=== PATIENT | female | born 1950 | race Two or more races ===

== ENCOUNTER 2020-11-13 16:11 | Inpatient (IN) | payer MEDICARE, OTHER ==
[~2020-11-13] VITALS: Ht 157.5 cm; Wt 71.2 kg
--- NOTE | 2020-11-13 16:30 | NUR ---
PT ARRIVED WITH ABDOMINAL PAIN, UNABLE TO TOLERATE FOOD AND WEAKNESS FOR MONTHS WAS HOSPITALIZED IN [place] FOR 3 WEEKS. ALERT & ORIENTED X4.
[2020-11-13 16:52] LABS: BASOPHILS # (AUTO) 0.1 K/uL (0.0-0.2); BASOPHILS % (AUTO) 1.2 % (0.0-2.0); EOSINOPHILS % (AUTO) 0.2 % (0.0-6.0); HEMATOCRIT 33 % (33-45); HEMOGLOBIN 10.7 g/dL (11.5-14.8); LYMPHOCYTES # (AUTO) 2.7 K/uL (0.8-4.8); LYMPHOCYTES % (AUTO) 33.5 % (20.0-44.0); MEAN CORPUSCULAR HGB CONC 33 g/dl (31.0-36.0); MEAN CORPUSCULAR VOLUME 90 fL (82-100); MONOCYTES # (AUTO) 0.8 K/uL (0.1-1.30); MONOCYTES % (AUTO) 10.4 % (2.0-12.0); NEUTROPHILS # (AUTO) 4.4 K/uL (1.8-8.9); NEUTROPHILS % (AUTO) 54.7 % (43.0-81.0); PLATELET COUNT (AUTO) 280 K/uL (150-450); RED BLOOD CELL COUNT(AUTO) 3.66 MIL/uL (4.0-5.2); WHITE BLOOD COUNT (AUTO) 8.1 K/uL (4.3-11.0)
[2020-11-13] MEDS ORDERED: ONDANSETRON HCL/PF - ER 4 MG/2 ML VIAL IV ONE (17:00)
[2020-11-13] MEDS ORDERED: IV NS 0.9% 500 ML BAG IV ONE (17:00)
[2020-11-13] MEDS ORDERED: ONDANSETRON HCL/PF 4 MG/2 ML VIAL ONE (17:01)
[2020-11-13 17:05] LABS: ALBUMIN 2.2 g/dL (3.4-5.0); BILIRUBIN,DIRECT 0.3 mg/dL (0.0-0.2); BILIRUBIN,TOTAL 0.6 mg/dL (0.2-1.0); CALCIUM, SERUM 8.1 mg/dL (8.5-10.1); CREATININE 0.6 mg/dL (0.6-1.3); TOTAL PROTEIN, SERUM 7.2 g/dL (6.4-8.2)
[2020-11-13] MEDS ORDERED: CYAN-6 IM (17:05)
[2020-11-13] MEDS ORDERED: FAMO-131 PO (17:05)
[2020-11-13] MEDS ORDERED: BUPR-54 PO (17:05)
[2020-11-13] MEDS ORDERED: ESOM40CA PO (17:05)
[2020-11-13] MEDS ORDERED: LOSA25TA27 PO (17:05)
[2020-11-13 17:07] LABS: POTASSIUM 2.6 mmol/L (3.5-5.1)
[2020-11-13] MEDS ORDERED: DICY20TA11 PO (17:08)
[2020-11-13] MEDS: POTASSIUM CL. PREMIX PERIPHER. 50 ML IV SCH ×2 (17:30→19:00)
[2020-11-13] MEDS ORDERED: POTASSIUM CHLORIDE 20 MEQ TAB.PRT.SR PO ONE ×2 (17:30→17:51)
--- NOTE | 2020-11-13 17:40 | NUR ---
COVID SWABS DONE AND SENT TO THE LAB
[2020-11-13] MEDS ORDERED: Magnesium 1GM/D5W 100ML PREMIX 400 ML IV ONE (17:50)
[2020-11-13] MEDS ORDERED: POTASSIUM CL. PREMIX PERIPHER. 200 ML ONE (17:50)
[2020-11-13] MEDS ORDERED: IOHEXOL-300 100 ML VIAL IV ONE (18:03)
[2020-11-13] MEDS ORDERED: IV NS 0.9% 250 ML IV ONE (18:03)
[2020-11-13] MEDS: Magnesium 1GM/D5W 100ML PREMIX 100 ML IV SCH ×4 (18:14→21:00)
--- NOTE | 2020-11-13 18:18 | NUR ---
THE PATIENT TAKEN TO CT
--- NOTE | 2020-11-13 18:21 | NUR ---
CALLED NURSING SUP FOR M/S BED.
--- NOTE | 2020-11-13 18:30 | NUR ---
THE PATIENT IS BACK FROM CT
--- NOTE | 2020-11-13 19:15 | NUR ---
3 BAGS OF MAGNESIUM AND 3 MAGS OF POTASSIUM ARE ENDORSED TO SUPERVISOR DRAPERY HANGING FOR ADMINISTRATION.
[2020-11-13 19:21] LABS: BILIRUBIN,URINE Negative (NEGATIVE); COLOR,URINE YELLOW (YELLOW); LEUKOCYTE ESTERASE ,URINE Negative (NEGATIVE); NITRITE, URINE Negative (NEGATIVE); PROTEIN,URINE Negative (NEGATIVE); UGLUCOSE Negative (NEGATIVE); UROBILINOGEN,URINE 0.2 EU/dL (0.2)
[2020-11-13 19:30] LABS: BACTERIA,URINE Few /HPF (None Seen); SQUAMOUS EPITHELIAL CELL,UR 0-2 /HPF (None Seen)
[2020-11-13] MEDS ORDERED: PIPERACILLIN /TAZOBACTAM 3.375 G in IV D5W 50 ML IV ONE (20:00)
[2020-11-13] MEDS ORDERED: PIPERACILLIN /TAZOBACTAM 3.375 G VIAL IV ONE (20:18)
[2020-11-13] MEDS ORDERED: IV D5/0.45 NACL 1,000 ML IV PRN ×2 (21:00→23:48)
[2020-11-13] MEDS ORDERED: Z GUARD REMEDY 2 OZ OINT TP PRN (21:00)
[2020-11-13] MEDS ORDERED: ACETAMINOPHEN 325 MG TABLET PO PRN (21:00)
[2020-11-13] MEDS ORDERED: MAGNESIUM HYDROXIDE 30 ML UDC PO PRN (21:00)
[2020-11-13] MEDS ORDERED: MAG HYDROX/AL HYDROX/SIMETH 30 ML UDC PO PRN (21:00)
[2020-11-13] MEDS ORDERED: MORPHINE SULFATE INJ 2 MG/ML DISP.SYRIN IV PRN (21:00)
--- NOTE | 2020-11-13 21:19 | NUR ---
MS 327-2
--- NOTE | 2020-11-13 21:30 | NUR ---
gave report to Nhan Land RN for malik
--- NOTE | 2020-11-13 22:00 | NUR ---
MS RN NOTES RECEIVED REPORT FROM [facility] NURSE. RECEIVED PATIENT VIA RADHARELIZABETH. ACCOMPANIED BY DAUGHTER. A/OX4. NO S/S OF APPARENT DISTRESS. NO C/O OF PAIN AT THIS TIME. BLE EDEMA NOTED NON-PITTING. MAGNESIUM AND POTASSIUM RUNNING AT THIS TIME -- STARTED IN THE ER. WILL KEEP NPO FOR TONIGHT. WILL CONTINUE TO MONITOR.
[2020-11-13] MEDS ORDERED: VANCOMYCIN 1 GM in IV D5W 250ml IV ONE (23:00)
[2020-11-13] MEDS ORDERED: VANCOMYCIN 1 GM VIAL ONE (23:52)
[2020-11-14] MEDS ORDERED: PIPERACILLIN /TAZOBACTAM 3.375 G in IV D5W 50 ML IV SCH
[2020-11-14 00:56] VITALS: BP 113/47
[2020-11-14] MEDS: ONDANSETRON HCL/PF 4 MG/2 ML VIAL IVP PRN (02:20)
--- NOTE | 2020-11-14 02:24 | NUR ---
MS RN NOTES PATIENT C/O NAUSEA. GIVEN ZOFRAN 2ML PRN AT THIS TIME. WILL REASSESS AND CONTINUE TO MONITOR.
[2020-11-14 06:32] LABS: BASOPHILS % (AUTO) 0.7 % (0.0-2.0); EOSINOPHILS % (AUTO) 0.9 % (0.0-6.0); HEMATOCRIT 27 % (33-45); LYMPHOCYTES # (AUTO) 1.7 K/uL (0.8-4.8); LYMPHOCYTES % (AUTO) 24.9 % (20.0-44.0); MEAN CORPUSCULAR HGB CONC 33 g/dl (31.0-36.0); MEAN CORPUSCULAR VOLUME 90 fL (82-100); MONOCYTES # (AUTO) 0.7 K/uL (0.1-1.30); MONOCYTES % (AUTO) 10.1 % (2.0-12.0); NEUTROPHILS # (AUTO) 4.3 K/uL (1.8-8.9); NEUTROPHILS % (AUTO) 63.4 % (43.0-81.0); PLATELET COUNT (AUTO) 216 K/uL (150-450); RED BLOOD CELL COUNT(AUTO) 3.05 MIL/uL (4.0-5.2); WHITE BLOOD COUNT (AUTO) 6.7 K/uL (4.3-11.0)
[2020-11-14 06:50] LABS: ALBUMIN 1.6 g/dL (3.4-5.0); BILIRUBIN,TOTAL 0.6 mg/dL (0.2-1.0); CALCIUM, SERUM 7.3 mg/dL (8.5-10.1); CREATININE 0.5 mg/dL (0.6-1.3); MAGNESIUM 2.1 mg/dL (1.8-2.4); PHOSPHORUS 1.7 mg/dL (2.5-4.9); POTASSIUM 3.8 mmol/L (3.5-5.1); TOTAL PROTEIN, SERUM 5.9 g/dL (6.4-8.2)
[2020-11-14] MEDS ORDERED: DICYCLOMINE HCL 10 MG CAPSULE PO PRN (07:00)
[2020-11-14 07:04] LABS: THYROID STIMULATING HORMONE 0.93 uIU/mL (0.358-3.74)
--- NOTE | 2020-11-14 07:14 | NUR ---
RN CLOSING NOTES PATIENT IN BED SLEEPING COMFORTABLY, EASY TO AROUSE. NO S/S OF DISTRESS. NO C/O PAIN. ALL NEEDS ATTENDED. CALLED PATIENT'S DAUGHTER (CIPRIANO) TO BRING ALL DOCUMENTATIONS OF PATIENT'S FROM [place] PER DOCTORS ORDER, CIPRIANO SAID SHE WILL BRING EVERYTHING SHE HAS ON HAND. NO SIGNIFICANT CHANGE SINCE LAST NIGHT. WILL ENDORSE TO MORNING SHIFT RN .
[2020-11-14] MEDS ORDERED: Medication Not On Formulary EA (Esomeprazole Mag Trihydrate (Nexium) 40 MG) PO SCH (07:30)
--- NOTE | 2020-11-14 07:38 | NUR ---
MS/RN OPENING NOTES RECEIVED PATIENT IN BED AWAKE ALERT AND ORIENTED X3. PATIENT IS IN ROOM AIR SATURATING WELL. PATIENT IN NO APPARENT DISTRESS NOTED. NO COMPLAINED OF PAIN NOTED AT THIS TIME. WILL CONTINUE TO MONITOR.
[2020-11-14 08:00] VITALS: BP 109/55
[2020-11-14] MEDS: LOSARTAN POTASSIUM 25 MG TABLET PO SCH (08:44)
[2020-11-14] MEDS: PANTOPRAZOLE 40 MG VIAL IV SCH (08:44)
[2020-11-14] MEDS: BUPROPION XL 150 MG TAB.ER.24 PO SCH (08:45)
[2020-11-14] MEDS: VANCOMYCIN 1 GM in IV D5W 250 ML IV SCH (11:46)
[2020-11-14] MEDS ORDERED: Sodium Phosphate 15 MMOL in IV NS 0.9% 245 ML IV SCH (12:00)
[2020-11-14] MEDS ORDERED: DIATR MEGLU/DIATRIZOATE SODIUM 30 ML BOTTLE (GASTROGRAPHIN) ONE (13:22)
--- NOTE | 2020-11-14 15:03 | NUR ---
RN NOTES PATIENT IS ALERT AND ORIENTED X3. PATIENT IN ON ROOM AIR. PATIENT IN NO APPARENT RESPIRATORY DISTRESS. NO COMPLAINED OF PAIN NOTED AT THIS TIME. LIE DETECTOR OPERATOR BY TAMARA FOR CT SCAN.
[2020-11-14] MEDS ORDERED: IOHEXOL-300 100 ML VIAL IV ONE (15:18)
[2020-11-14] MEDS ORDERED: CT SWABBABLE VALVE TRANS SET 1 EA INFUS.SET MC ONE (15:19)
[2020-11-14] MEDS ORDERED: IV NS 0.9% 250 ML IV ONE (15:19)
[2020-11-14 16:00] VITALS: BP 122/58
--- NOTE | 2020-11-14 16:00 | NUR ---
RN NOTES PATIENT IS ALERT AND ORIENTED X3. PATIENT IN ON ROOM AIR. PATIENT IN NO APPARENT RESPIRATORY DISTRESS. NO COMPLAINED OF PAIN NOTED AT THIS TIME. CAME BACK IN THE UNIT VIA WHEELCHAIR.
[2020-11-14] MEDS: PIPERACILLIN /TAZOBACTAM 3.375 G in IV D5W 100 ML IV SCH ×2 (18:25→20:09)
--- NOTE | 2020-11-14 18:35 | NUR ---
MS/RN CLOSING NOTES PATIENT IS ON BED AWAKE ALERT AND ORIENTED X3. PATIENT IS ON ROOM AIR SATURATION 97%. PATIENT IN NO APPARENT RESPIRATORY DISTRESS NOTED AT THIS TIME. SEEN AND EXAMINED BY MD WITH ORDERS MADE AND CARRIED OUT. ALL DUE MEDICATIONS WAS GIVEN. SAFETY PRECAUTIONS WAS IN PLACED. SIDE RAILS UP X2. CALL LIGHT WITHIN REACH. WILL ENDORSED TO GROUNDS SUPERVISOR FOR ISABELA.
[2020-11-14 19:28] LABS: THYROID STIMULATING HORMONE 0.91 uIU/mL (0.358-3.74)
[2020-11-14 20:00] VITALS: BP 116/61
[2020-11-15] MEDS: VANCOMYCIN 1 GM in IV D5W 250 ML IV SCH ×2 (00:55→17:19)
[2020-11-15] MEDS: PIPERACILLIN /TAZOBACTAM 3.375 G in IV D5W 100 ML IV SCH ×3 (05:08→20:57)
--- NOTE | 2020-11-15 06:30 | NUR ---
MS RN NOTES AWAKE & RESPONSIVE. NOT IN ANY DISTRESS. NO SOB NOTED. DENIES ANY PAIN OR DISCOMFORT AT THIS TIME. AM CARE DONE. MONITORED ACCORDINGLY. CALL LIGHT WITHIN REACH. BED IN LOWEST POSITION. SR UP X 3 WITH BED ALARM ON FOR SAFETY. WILL ENDORSE TO NEXT SHIFT.
[2020-11-15 07:04] LABS: BASOPHILS % (AUTO) 0.6 % (0.0-2.0); EOSINOPHILS % (AUTO) 1.2 % (0.0-6.0); HEMATOCRIT 28 % (33-45); HEMOGLOBIN 9.2 g/dL (11.5-14.8); LYMPHOCYTES # (AUTO) 1.7 K/uL (0.8-4.8); LYMPHOCYTES % (AUTO) 23.9 % (20.0-44.0); MEAN CORPUSCULAR HGB CONC 33 g/dl (31.0-36.0); MEAN CORPUSCULAR VOLUME 89 fL (82-100); MONOCYTES # (AUTO) 0.7 K/uL (0.1-1.30); MONOCYTES % (AUTO) 10.1 % (2.0-12.0); NEUTROPHILS # (AUTO) 4.6 K/uL (1.8-8.9); NEUTROPHILS % (AUTO) 64.2 % (43.0-81.0); PLATELET COUNT (AUTO) 226 K/uL (150-450); RED BLOOD CELL COUNT(AUTO) 3.12 MIL/uL (4.0-5.2); WHITE BLOOD COUNT (AUTO) 7.1 K/uL (4.3-11.0)
--- NOTE | 2020-11-15 07:15 | NUR ---
MS RN CLOSING NOTE PATIENT ON BED ALERT AND ORIENTED X3, SPEAKS ONLY FAROESE. PATIENT IS ON ROOM AIR SATURATION 97%. PATIENT IN NO APPARENT RESPIRATORY DISTRESS NOTED AT THIS TIME. PATIENT WITH IV ACCESS PATENT AND INTACT. COMFORT MEASURES PROVIDED. SAFETY MEASURES ENSURED WITH BED LOCKED AND AT LOWEST POSITION AND SIDE RAILS UP X2. CALL LIGHT AND BADSIDE TABLE WITHIN REACH AT ALL TIMES. WILL CONTINUE TO MONITOR PATIENT. Addendum: 11/15/20 at 2105 by GIOVANNI OGLESBY RN OPENING NOTE
[2020-11-15 07:45] LABS: ALBUMIN 1.6 g/dL (3.4-5.0); BILIRUBIN,TOTAL 0.7 mg/dL (0.2-1.0); CALCIUM, SERUM 7.7 mg/dL (8.5-10.1); CREATININE 0.6 mg/dL (0.6-1.3); MAGNESIUM 1.6 mg/dL (1.8-2.4); PHOSPHORUS 2.7 mg/dL (2.5-4.9); POTASSIUM 3.2 mmol/L (3.5-5.1); TOTAL PROTEIN, SERUM 5.9 g/dL (6.4-8.2)
[2020-11-15] MEDS: PANTOPRAZOLE 40 MG VIAL IV SCH (08:41)
[2020-11-15] MEDS: BUPROPION XL 150 MG TAB.ER.24 PO SCH (08:41)
[2020-11-15] MEDS: LOSARTAN POTASSIUM 25 MG TABLET PO SCH (08:42)
--- NOTE | 2020-11-15 10:45 | NUR ---
MS RN NOTES PATIENT SEEN BY [employer] BUSINESS OBJECTS CONSULTANT OF DR. LOCKHART
[2020-11-15] MEDS ORDERED: POTASSIUM CHLORIDE 20 MEQ TAB.PRT.SR PO ONE (11:00)
--- NOTE | 2020-11-15 11:45 | NUR ---
MS RN NOTES PATIENT SEEN BY DR. OLIVA AND REORDERING CLERK ZEKE. PATIENT'S DAUGHTER AT BEDSIDE. MD SAID THAT PATIENT MAY BE DISCHARGED AND TRANSFEERD TO ANOTHER HOSPITAL AND TO RELAY IT TO DR. BLACKWELL. DR. BLACKWELL NOTIFIED OF GI DOCTOR'S MESSAGE. WILL CONTINUE TO MONITOR PATIENT.
[2020-11-15] MEDS: POTASSIUM CL. PREMIX PERIPHER. 50 ML IV SCH ×4 (14:09→19:29)
[2020-11-15] MEDS: Magnesium 1GM/D5W 100ML PREMIX 100 ML IV SCH ×2 (14:09→16:42)
--- NOTE | 2020-11-15 17:00 | NUR ---
MS RN NOTE PER DR. MURILLO OF GI, PATIENT MAY ADVANCE TO SOFT DIET PER PATIENT'S REQUEST. ORDERS MADE AND CARRIED OUT. SHE WAS ALSO MADE AWARE THAT PER DAY GUARD KAVITHA, NOTES SHOULD MENTION THE PROCEDURE THAT CANNOT BE DONE HERE FOR TRANSFER TO ANOTHER HOSPITAL. WILL WAIT FOR ANY ADVICE, INSTRUCTIONS.
--- NOTE | 2020-11-15 19:00 | NUR ---
MS RN CLOSING NOTE PATIENT ON BED ALERT AND ORIENTED X3, SPEAKS ONLY UZBEK. PATIENT IS ON ROOM AIR SATURATION 97%. PATIENT IN NO APPARENT RESPIRATORY DISTRESS NOTED AT THIS TIME. POTASSIUM AND MAGNESIUM CORRECTION DONE ORDERED. PATIENT WITH IV ACCESS PATENT AND INTACT. COMFORT MEASURES PROVIDED. SAFETY MEASURES ENSURED WITH BED LOCKED AND AT LOWEST POSITION AND SIDE RAILS UP X2. CALL LIGHT AND BEDSIDE TABLE WITHIN REACH AT ALL TIMES. WILL ENDORSE TO NEXT SHIFT FOR CONTINUITY OF CARE.
[2020-11-15] MEDS: SOD FERRIC GLUC 125 MG in IV NS 0.9% 100 ML IV SCH (19:29)
[2020-11-15 20:00] VITALS: BP 112/57
--- NOTE | 2020-11-15 20:00 | NUR ---
MS RN OPENING NOTES: RECEIVED PATIENT AWAKE IN BED, BED IN LOW POSITION, CALL LIGHTS WITHIN REACH, NO COMPLAIN OF PAIN AND DISCOMFORT, NO SOB OR ANY RESP. DISTRESS NOTED, PATIENT IS A/O X3 CENTRAL AFRICAN SPEAKING, AMBULATORY WITH ASSISTANCE, KEPT CLEAN AND DRY, WILL CONTINUE TO MONITOR.
[2020-11-16] MEDS: PIPERACILLIN /TAZOBACTAM 3.375 G in IV D5W 100 ML IV SCH ×3 (04:30→20:29)
[2020-11-16 07:06] LABS: IMMUNOGLOBULIN A, SERUM 336 mg/dL (87-352); IMMUNOGLOBULIN G, SERUM 2382 mg/dL (586-1602); IMMUNOGLOBULIN M, SERUM 67 mg/dL (26-217)
[2020-11-16] MEDS: VANCOMYCIN 1 GM in IV D5W 250 ML IV SCH ×2 (07:07→17:24)
[2020-11-16 07:17] LABS: BASOPHILS # (AUTO) 0.1 K/uL (0.0-0.2); BASOPHILS % (AUTO) 0.9 % (0.0-2.0); EOSINOPHILS % (AUTO) 0.8 % (0.0-6.0); HEMATOCRIT 29 % (33-45); HEMOGLOBIN 9.6 g/dL (11.5-14.8); LYMPHOCYTES # (AUTO) 1.8 K/uL (0.8-4.8); LYMPHOCYTES % (AUTO) 21.9 % (20.0-44.0); MEAN CORPUSCULAR HGB CONC 34 g/dl (31.0-36.0); MEAN CORPUSCULAR VOLUME 89 fL (82-100); MONOCYTES # (AUTO) 0.8 K/uL (0.1-1.30); MONOCYTES % (AUTO) 9.4 % (2.0-12.0); NEUTROPHILS # (AUTO) 5.6 K/uL (1.8-8.9); PLATELET COUNT (AUTO) 232 K/uL (150-450); WHITE BLOOD COUNT (AUTO) 8.4 K/uL (4.3-11.0)
[2020-11-16 07:35] LABS: CALCIUM, SERUM 7.9 mg/dL (8.5-10.1); CREATININE 0.8 mg/dL (0.6-1.3); PHOSPHORUS 2.9 mg/dL (2.5-4.9); POTASSIUM 3.5 mmol/L (3.5-5.1)
--- NOTE | 2020-11-16 07:52 | NUR ---
MS RN CLOSING NOTES: PATIENT AWAKE IN BED, NO COMPLAIN OF PAIN AND DISCOMFORT, BED IN LOW POSITION, CALL LIGHTS WITHIN REACH, AMBULATORY WITH SUPERVISION, ON SOFT DIET, KEPT CLEAN AND DRY, ALL NEEDS MET ENDORSE TO INCOMING SHIFT.
--- NOTE | 2020-11-16 08:00 | NUR ---
RN OPENING NOTE PT AWAKE IN BED RESTING. A/O X 4 AND K[place]AKH SPEAKING. LITIGATION SECRETARY NEEDED. NO COMPLAINT OF PAIN OR NAUSEA PRESENT. ON RA WITH NO SOB OR RESPIRATORY DISTRESS PREENT. NO ELECTRONIC COMMUNICATIONS TECHNICIAN PRESENT. NO EDEMA PRESENT. SELF AMBULATORY WITH ASSIST WITH BATHROOM PRIVILEGES. SKIN IS INTACT. IV PRESENT ON R HAND 22G AND FLUSHES WELL. IV PRESENT ON R FA 22G AND FLUSHES WELL. LABS AND ORDERS REVIEWED. SAFETY MEASURES IN PLACE. SIDE RAILS RAISED. BED LOWERED. CALL LIGHT WITHIN REACH. WILL CONTINUE TO MONITOR.
[2020-11-16 08:07] LABS: AFP, TUMOR MARKER 1.2 ng/mL (0.0-8.3); CANCER AG, 15-3 19.9 U/mL (0.0-25.0); CARBOHYDRATE AG 19-9 <2 U/mL (0-35)
[2020-11-16 08:15] VITALS: BP 100/39
[2020-11-16] MEDS: BUPROPION XL 150 MG TAB.ER.24 PO SCH (08:39)
[2020-11-16] MEDS: PANTOPRAZOLE 40 MG VIAL IV SCH (08:39)
[2020-11-16] MEDS: LOSARTAN POTASSIUM 25 MG TABLET PO SCH (08:40)
[2020-11-16] MEDS: SOD FERRIC GLUC 125 MG in IV NS 0.9% 100 ML IV SCH (13:29)
[2020-11-16 16:48] VITALS: BP 109/55
--- NOTE | 2020-11-16 16:48 | NUR ---
RN NOTE RECEIVED CALL FROM RADIOLOGY. HIDA SCAN UNABLE TO BE DONE ON WEEKENDS DUE TO NO STOCK OF [place]. CN NOTIFIED. WILL CONTINUE TO MONITOR.
--- NOTE | 2020-11-16 18:17 | NUR ---
RN CLOSING NOTE PT AWAKE IN BED RESTING. A/O X 4 AND KITTITIAN SPEAKING. PATIENT SERVICES CLERK NEEDED. NO COMPLAINT OF PAIN OR NAUSEA PRESENT. ON RA WITH NO SOB OR RESPIRATORY DISTRESS PRESENT. NO ARCHITECTURAL MODELER PRESENT. NO EDEMA PRESENT. SELF AMBULATORY WITH ASSIST WITH BATHROOM PRIVILEGES. SKIN IS INTACT. IV PRESENT ON R HAND 22G AND FLUSHES WELL. MIDLINE PRESENT ON [place] AND FLUSHES WELL. LABS AND ORDERS REVIEWED. ROUTINE MEDS GIVEN. SAFETY MEASURES IN PLACE. SIDE RAILS RAISED. BED LOWERED. CALL LIGHT WITHIN REACH. REPORT GIVEN TO NIGHT NURSE FOR ISABELA.
--- NOTE | 2020-11-16 19:55 | NUR ---
MS RN OPENING NOTES: RECEIVED PATIENT AWAKE WITH FAMILY, NO COMPLAIN OF PAIN AND DISCOMFORT, BED IN LOW POSITION, CALL LIGHTS WITHIN REACH, PATIENT IS A/OX3 OMANI SPEAKING ABLE TO EXPRESS NEEDS, PATIENT KEPT CLEAN AND DRY, ALL NEEDS MET, WILL CONTINUE TO MONITOR.
[2020-11-16 20:00] VITALS: BP 113/65
[2020-11-17] MEDS: PIPERACILLIN /TAZOBACTAM 3.375 G in IV D5W 100 ML IV SCH ×3 (04:14→20:41)
[2020-11-17] MEDS: VANCOMYCIN 1 GM in IV D5W 250 ML IV SCH (06:15)
--- NOTE | 2020-11-17 06:32 | NUR ---
MS RN ERAN NOTES; PATIENT WAS AWAKE IN BED, BED IN LOW POSITION, CALL LIGHTS WITHIN REACH, NO COMPLAIN OF PAIN AND DISCOMFORT AT THIS TIME, A/OX3 SLOV[place] SPEAKING, AMBULATORY WITH SUPERVISION, , WITH IV LINE AT RIGHT HAND, AND [place] MIDLINE INFUSING WELL, ON SOFT DIET , HIDA SCAN TO WEDNESDAY, PATIENT KEPT CLEAN NAD DRY, ALL NEEDS MET, ENDORSE TO INCOMING SHIFT.
[2020-11-17 08:00] VITALS: BP 110/58
--- NOTE | 2020-11-17 08:00 | NUR ---
RN CLOSING NOTE PT AWAKE IN BED RESTING. A/O X 4 AND SUDANESE SPEAKING. ARC WELDING MACHINE OPERATOR NEEDED. NO COMPLAINT OF PAIN OR NAUSEA PRESENT. ON RA WITH NO SOB OR RESPIRATORY DISTRESS PRESENT. NO RODEO PERFORMER PRESENT. NO EDEMA PRESENT. SELF AMBULATORY WITH ASSIST WITH BATHROOM PRIVILEGES. SKIN IS INTACT. IV PRESENT ON R HAND 22G AND FLUSHES WELL. MIDLINE PRESENT ON [place] AND FLUSHES WELL. LABS AND ORDERS REVIEWED. SAFETY MEASURES IN PLACE. SIDE RAILS RAISED. BED LOWERED. CALL LIGHT WITHIN REACH. WILL CONTINUE TO MONITOR.
[2020-11-17 08:36] LABS: BASOPHILS % (AUTO) 0.6 % (0.0-2.0); EOSINOPHILS % (AUTO) 0.7 % (0.0-6.0); HEMATOCRIT 30 % (33-45); HEMOGLOBIN 9.7 g/dL (11.5-14.8); LYMPHOCYTES % (AUTO) 23.8 % (20.0-44.0); MEAN CORPUSCULAR HGB CONC 33 g/dl (31.0-36.0); MEAN CORPUSCULAR VOLUME 91 fL (82-100); MONOCYTES # (AUTO) 0.7 K/uL (0.1-1.30); MONOCYTES % (AUTO) 8.6 % (2.0-12.0); NEUTROPHILS # (AUTO) 5.6 K/uL (1.8-8.9); NEUTROPHILS % (AUTO) 66.3 % (43.0-81.0); PLATELET COUNT (AUTO) 217 K/uL (150-450); RED BLOOD CELL COUNT(AUTO) 3.28 MIL/uL (4.0-5.2); WHITE BLOOD COUNT (AUTO) 8.5 K/uL (4.3-11.0)
[2020-11-17] MEDS: LOSARTAN POTASSIUM 25 MG TABLET PO SCH (09:00)
[2020-11-17] MEDS: BUPROPION XL 150 MG TAB.ER.24 PO SCH (09:24)
[2020-11-17] MEDS: PANTOPRAZOLE 40 MG VIAL IV SCH (09:24)
[2020-11-17 13:05] LABS: ALBUMIN 1.8 g/dL (3.4-5.0); BILIRUBIN,TOTAL 0.7 mg/dL (0.2-1.0); PHOSPHORUS 2.4 mg/dL (2.5-4.9); POTASSIUM 3.3 mmol/L (3.5-5.1); TOTAL PROTEIN, SERUM 6.4 g/dL (6.4-8.2)
[2020-11-17 13:32] LABS: MAGNESIUM 1.8 mg/dL (1.8-2.4)
[2020-11-17] MEDS: SOD FERRIC GLUC 125 MG in IV NS 0.9% 100 ML IV SCH (13:52)
[2020-11-17] MEDS ORDERED: K PHOS NEUTRAL 250 MG TABLET PO ONE (15:00)
[2020-11-17 16:00] VITALS: BP 117/65
--- NOTE | 2020-11-17 17:44 | NUR ---
RN CLOSING NOTE PT AWAKE IN BED RESTING. A/O X 4 AND SWISS SPEAKING. RADIATION OFFICER NEEDED. NO COMPLAINT OF PAIN OR NAUSEA PRESENT. ON RA WITH NO SOB OR RESPIRATORY DISTRESS PRESENT. NO CIRCUIT BREAKER MECHANIC PRESENT. NO EDEMA PRESENT. SELF AMBULATORY WITH ASSIST WITH BATHROOM PRIVILEGES. SKIN IS INTACT. IV PRESENT ON R HAND 22G AND FLUSHES WELL. MIDLINE PRESENT ON [place] AND FLUSHES WELL. LABS AND ORDERS REVIEWED. ROUTINE MEDS GIVEN. SAFETY MEASURES IN PLACE. SIDE RAILS RAISED. BED LOWERED. CALL LIGHT WITHIN REACH. REPORT GIVEN TO NIGHT NURSE FOR ISABELA.
--- NOTE | 2020-11-17 19:48 | NUR ---
N OPENING NOTES: RECEIVED PATIENT AWAKE IN BED, BED IN LOW POSITION, CALL LIHTS WITHIN REACH, NO COMPLAIN OF PAIN AND DISCOMFORT AT THIS TIME, PATIENT WAS WITH FAMILY, A/OX 3 [place] SPEAKING, AMBULATORY ON BRP WITH SUPERVISION, WITH RT HAND IV LINE #22 AND [place] ML INFUSING WELL, NO SOB NOTED, PATIENT KEPT CLEAN AND DRY WILL CONTINUE TO MONITOR.
[2020-11-17 20:00] VITALS: BP 106/52
[2020-11-18] MEDS: PIPERACILLIN /TAZOBACTAM 3.375 G in IV D5W 100 ML IV SCH ×3 (04:47→20:20)
[2020-11-18 06:18] LABS: BASOPHILS % (AUTO) 0.6 % (0.0-2.0); EOSINOPHILS % (AUTO) 0.9 % (0.0-6.0); HEMATOCRIT 26 % (33-45); HEMOGLOBIN 8.8 g/dL (11.5-14.8); LYMPHOCYTES # (AUTO) 1.7 K/uL (0.8-4.8); LYMPHOCYTES % (AUTO) 23.6 % (20.0-44.0); MEAN CORPUSCULAR HGB CONC 33 g/dl (31.0-36.0); MEAN CORPUSCULAR VOLUME 91 fL (82-100); MONOCYTES # (AUTO) 0.7 K/uL (0.1-1.30); MONOCYTES % (AUTO) 9.8 % (2.0-12.0); NEUTROPHILS # (AUTO) 4.7 K/uL (1.8-8.9); NEUTROPHILS % (AUTO) 65.1 % (43.0-81.0); PLATELET COUNT (AUTO) 200 K/uL (150-450); RED BLOOD CELL COUNT(AUTO) 2.91 MIL/uL (4.0-5.2); WHITE BLOOD COUNT (AUTO) 7.2 K/uL (4.3-11.0)
--- NOTE | 2020-11-18 06:37 | NUR ---
RN CLOSING NOTES PATIENT SLEEP IN BED COMFORTABLY, BED IN LOW POSITION, CALL LIGHTS WITHIN REACH, NO COMPLAIN OF PAIN AND DISCOMFORT AT THIS TIME, BED IN LOW POSITION, PATIENT IS A/O X4 TURKISH SPEAKING, AMBULATORY WITH SUPERVISIONWITH SCHEDULE HIDA SCAN, PATIENT WITH RHAN #22 INFUSING WELL, WITH [place] ML,KEPT CLEAN ANDD RY, ALL NEEDS MET, WILL CONTINUE TO MONITOR.
[2020-11-18 06:53] VITALS: BP 106/52
[2020-11-18 07:03] LABS: CALCIUM, SERUM 7.8 mg/dL (8.5-10.1); POTASSIUM 3.3 mmol/L (3.5-5.1)
[2020-11-18 07:22] LABS: MAGNESIUM 1.8 mg/dL (1.8-2.4)
[2020-11-18] MEDS ORDERED: PANTOPRAZOLE 40 MG TABLET.DR PO SCH (07:30)
--- NOTE | 2020-11-18 07:35 | NUR ---
MS RN OPENING NOTE RECEIVED PT AWAKE IN BED, A/OX3, ABLE TO VERBALIZE NEEDS. DENIES ANY PAIN OR DISCOMFORT AT THIS TIME. ON ROOM AIR AND TOLERATING WELL. NOTED IV ACCESS ON RH #22g AND [place] MIDLINE, INTACT, PATENT AND FLUSHES WELL. PT ON NPO FOR HIDA SCAN. PT MADE AWARE AND VERBALIZED UNDERSTANDING. SAFETY MEASURES MAINTAINED: BED IN LOWEST LOCKED POSITION, S/R UP X2, CALL LIGHT AND TABLE WITHIN EASY REACH. WILL CONTINUE TO MONITOR.
[2020-11-18 08:00] VITALS: BP 102/52
[2020-11-18 08:06] LABS: *SPE A/G RATIO 0.6 (0.7-1.7); *SPE ALBUMIN 2.1 g/dL (2.9-4.4); *SPE ALPHA-1-GLOBULIN 0.3 g/dL (0.0-0.4); *SPE ALPHA-2-GLOBULIN 0.5 g/dL (0.4-1.0); *SPE BETA GLOBULIN 0.7 g/dL (0.7-1.3); *SPE GLOBULIN, TOTAL 3.8 g/dL (2.2-3.9); *SPE M-SPIKE Not Observed g/dL (Not Observed); *SPEGAMMA GLOBULIN 2.4 g/dL (0.4-1.8)
[2020-11-18] MEDS: BUPROPION XL 150 MG TAB.ER.24 PO SCH (08:10)
[2020-11-18] MEDS: LOSARTAN POTASSIUM 25 MG TABLET PO SCH (08:10)
[2020-11-18] MEDS: PANTOPRAZOLE 40 MG VIAL IV SCH (11:49)
[2020-11-18] MEDS: POTASSIUM CL. PREMIX PERIPHER. 50 ML IV SCH ×2 (11:49→13:18)
[2020-11-18] MEDS: ENSURE ENLIVE 237 ML LIQUID (VANILLA) PO SCH ×2 (13:30→16:22)
--- NOTE | 2020-11-18 15:00 | NUR ---
RN NOTES HIDA SCAN DONE TODAY. INFORMED KATHY SOTO FOR RESULT. MD ORDERED TO START PT ON CLEAR LIQUIDS AT THIS TIME. PT AND FAMILY AWARE.
[2020-11-18 16:00] VITALS: BP 105/68
--- NOTE | 2020-11-18 17:35 | NUR ---
RN NOTE PT FOR CT-GUIDED ASPIRATION AND DRAINAGE OF PERITONEAL FLUID TOMORROW, PT AND FAMILY AT BEDSIDE MADE AWARE AND ALL CONSENTS SIGNED BY DAUGHTER, YAMIL. NPO TO BE ENFORCED POST-MIDNIGHT.
--- NOTE | 2020-11-18 18:51 | NUR ---
MS RN CLOSING NOTE PT AWAKE IN BED WITH FAMILY AT BEDSIDE. A/OX3, ABLE TO VERBALIZE NEEDS. DENIES ANY PAIN OR DISCOMFORT AT THIS TIME. ON ROOM AIR AND TOLERATING WELL. IV ACCESS ON RH #22G AND [place] MIDLINE, INTACT, PATENT, AND INFUSING D5 1/2 NS @100ML/HR AND TOLERATING WELL. PT WILL BE NPO POST-MIDNIGHT FOR CT-GUIDED ASPIRATION AND DRAINAGE OF PERITONEAL FLUID TOMORROW. PT AND FAMILY ARE AWARE. SAFETY MEASURES MAINTAINED: BED IN LOWEST LOCKED POSITION, S/R UP X2, CALL LIGHT AND TABLE WITHIN EASY REACH. WILL ENDORSE TO NEXT SHIFT NURSE.
--- NOTE | 2020-11-18 19:58 | NUR ---
MS RN OPENING NOTE PATIENT A/OX3; ABLE TO MAKE NEEDS KNOWN. TOLERATING ROOM AIR WELL WITH NO SOB. DENIES PAIN OR DISCOMFORT AT THIS TIME. [place] MIDLINE #18G D5 1/2NS @ 100ML/HR; PATENT AND INTACT. R HAND #22 S/L; PATENT AND INTACT. SAFETY MEASURES IN PLACE: BED IN LOWEST LOCKED POSITION, SIDE RAILS UPX2, CALL LIGHT WITHIN EASY REACH, BED ALARM ON. FAMILY AT BEDSIDE. PATIENT IN STABLE CONDITION, WILL CONTINUE PLAN OF CARE.
[2020-11-18 20:00] VITALS: BP 124/67
[2020-11-18] MEDS: ONDANSETRON HCL/PF 4 MG/2 ML VIAL IVP PRN (20:19)
--- NOTE | 2020-11-18 20:19 | NUR ---
MS RN NOTE - NAUSEA PATIENT C/O NAUSEA NO EMESIS NOTED. ADMINISTERED ZOFRAN ORDERED. WILL CONTINUE TO REASSESS FOR N/V IN 1 HOUR.
[2020-11-18] MEDS ORDERED: LORAZEPAM 1 MG TABLET PO ONE (21:30)
[2020-11-19] MEDS: PIPERACILLIN /TAZOBACTAM 3.375 G in IV D5W 100 ML IV SCH ×3 (03:41→20:23)
[2020-11-19 07:02] LABS: ALBUMIN 1.7 g/dL (3.4-5.0); BILIRUBIN,TOTAL 0.7 mg/dL (0.2-1.0); MAGNESIUM 1.8 mg/dL (1.8-2.4); PHOSPHORUS 2.8 mg/dL (2.5-4.9); POTASSIUM 3.7 mmol/L (3.5-5.1); TOTAL PROTEIN, SERUM 6.5 g/dL (6.4-8.2)
[2020-11-19 07:10] LABS: BASOPHILS % (AUTO) 0.8 % (0.0-2.0); EOSINOPHILS % (AUTO) 1.6 % (0.0-6.0); HEMATOCRIT 28 % (33-45); HEMOGLOBIN 9.3 g/dL (11.5-14.8); LYMPHOCYTES # (AUTO) 1.7 K/uL (0.8-4.8); LYMPHOCYTES % (AUTO) 28.3 % (20.0-44.0); MEAN CORPUSCULAR HGB CONC 33 g/dl (31.0-36.0); MEAN CORPUSCULAR VOLUME 91 fL (82-100); MONOCYTES # (AUTO) 0.6 K/uL (0.1-1.30); MONOCYTES % (AUTO) 9.6 % (2.0-12.0); NEUTROPHILS # (AUTO) 3.6 K/uL (1.8-8.9); NEUTROPHILS % (AUTO) 59.7 % (43.0-81.0); PLATELET COUNT (AUTO) 210 K/uL (150-450); RED BLOOD CELL COUNT(AUTO) 3.11 MIL/uL (4.0-5.2)
[2020-11-19] MEDS: ENSURE ENLIVE 237 ML LIQUID (VANILLA) PO SCH ×4 (08:00→17:00)
--- NOTE | 2020-11-19 08:02 | NUR ---
MS RN CLOSING NOTE PATIENT A/OX3; ABLE TO MAKE NEEDS KNOWN. TOLERATING ROOM AIR WELL WITH NO SOB. DENIES PAIN OR DISCOMFORT AT THIS TIME. [place] MIDLINE #18G D5 1/2NS @ 100ML/HR; PATENT AND INTACT. R HAND #22 S/L; PATENT AND INTACT. SAFETY MEASURES IN PLACE: BED IN LOWEST LOCKED POSITION, SIDE RAILS UPX2, CALL LIGHT WITHIN EASY REACH, BED ALARM ON. ENDORSED PLAN OF CARE.
[2020-11-19] MEDS: PANTOPRAZOLE 40 MG VIAL IV SCH (08:24)
[2020-11-19] MEDS: BUPROPION XL 150 MG TAB.ER.24 PO SCH (08:25)
[2020-11-19] MEDS: LOSARTAN POTASSIUM 25 MG TABLET PO SCH (08:25)
--- NOTE | 2020-11-19 09:04 | NUR ---
RN OPENING NOTE RECEIVED PATIENT IN BED. A/O X4. NO SOB NOTED. IN NO APPARENT DISTRESS. DENIES ANY PAIN OR DISCOMFORT AT THIS TIME. CURRENTLY ON NPO EXCEPT MEDS STATUS. IV ACCESS ON [place] MIDLINE #18 G, D5 1/2 NS X 100 ML/HR, INTACT AND PATENT. SAFETY MEASURES MAINTAINED. BED IN LOWEST POSITION, BRAKES LOCKED. SIDE RAILS UP X2. CALL LIGHT WITHIN REACH. WILL CONTINUE PLAN OF CARE. Addendum: 11/19/20 at 0909 by SULTANA GRADY RN MADE ROUNDS AT 0730
--- NOTE | 2020-11-19 12:48 | NUR ---
MIGUEL ANGEL DONG GAVE AN ORDER THRU TEXT MESSAGE TO PUT THE PT BACK ON CLEAR LIQUID DIET. ORDER CARRIED OUT.
--- NOTE | 2020-11-19 15:21 | NUR ---
RN NOTE DONNA DONG ORDERED TO ADVANCE DIET TO SOFT DIET. ORDER CARRIED OUT.
--- NOTE | 2020-11-19 18:08 | NUR ---
RN CLOSING NOTE PATIENT RESTING IN BED. A/O X4. NO SOB NOTED. IN NO APPARENT DISTRESS. STILL DENIES ANY PAIN OR DISCOMFORT AT THIS TIME. CURRENTLY ON SOFT DIET - TO ADVANCE DIET TOLERATED. IV ACCESS ON R HAND #22 G. [place] MIDLINE #18 G, D5 1/2 NS X 100 ML/HR, INTACT AND PATENT. NO SIGNS OF INFILTRATION. ALL DUE MEDS GIVEN ORDERED. ALL NEEDS HAVE BEEN MET AND ATTENDED. SAFETY MEASURES MAINTAINED. BED IN LOWEST POSITION, BRAKES LOCKED. SIDE RAILS UP X2. KEPT CALL LIGHT WITHIN REACH. WILL ENDORSE CONTINUITY OF CARE TO ONCOMING SHIFT.
[2020-11-19 20:00] VITALS: BP 104/58
--- NOTE | 2020-11-19 20:20 | NUR ---
MSRN FULLY AWAKE, FAMILY JUST LEFT. NO COMPLAINTS DENIES ANY TYPE OF DISCOMFORTS. ALL NEEDS ATTENDED. EAGER TO GO HOME IN AM. KEPT COMFORTABLE. CONTINUED
--- NOTE | 2020-11-19 23:15 | NUR ---
MSRN ASSISTED TO BSC, VOIDED FREELY. UNSTEADY GAIT. SAFETY PRECAUTIONS EMPHASIZED TRANSLATED IN DANISH BY STAFF, BED ALARM ON. CLOSELY WATCHED.
--- NOTE | 2020-11-20 01:03 | NUR ---
MSRN ASLEEP, CLOSELY WATCHED.
[2020-11-20] MEDS: PIPERACILLIN /TAZOBACTAM 3.375 G in IV D5W 100 ML IV SCH ×2 (04:59→11:00)
--- NOTE | 2020-11-20 06:26 | NUR ---
MSRN ASSISTED TO RESTROOM. VOIDED FREELY. AM CARE STARTED.
[2020-11-20 07:05] LABS: BASOPHILS # (AUTO) 0.1 K/uL (0.0-0.2); BASOPHILS % (AUTO) 0.9 % (0.0-2.0); EOSINOPHILS % (AUTO) 1.2 % (0.0-6.0); HEMATOCRIT 27 % (33-45); HEMOGLOBIN 8.9 g/dL (11.5-14.8); LYMPHOCYTES # (AUTO) 1.8 K/uL (0.8-4.8); LYMPHOCYTES % (AUTO) 26.1 % (20.0-44.0); MEAN CORPUSCULAR HGB CONC 33 g/dl (31.0-36.0); MEAN CORPUSCULAR VOLUME 91 fL (82-100); MONOCYTES # (AUTO) 0.7 K/uL (0.1-1.30); MONOCYTES % (AUTO) 9.6 % (2.0-12.0); NEUTROPHILS # (AUTO) 4.3 K/uL (1.8-8.9); NEUTROPHILS % (AUTO) 62.2 % (43.0-81.0); PLATELET COUNT (AUTO) 171 K/uL (150-450); RED BLOOD CELL COUNT(AUTO) 2.96 MIL/uL (4.0-5.2); WHITE BLOOD COUNT (AUTO) 6.8 K/uL (4.3-11.0)
--- NOTE | 2020-11-20 07:26 | NUR ---
MS RN OPENING NOTE RECEIVED PATIENT RESTING IN BED. PATIENT A/OX3; ABLE TO MAKE NEEDS KNOWN. PATIENT IS BREATHING EVENLY AND NONLABORED TOLERATING ROOM AIR WELL WITH NO SOB. DENIES PAIN OR DISCOMFORT AT THIS TIME. [place] MIDLINE #18G PATENT AND INTACT. SAFETY MEASURES IN PLACE: BED IN LOWEST LOCKED POSITION, SIDE RAILS UPX2, CALL LIGHT WITHIN EASY REACH, BED ALARM ON. PATIENT IN STABLE CONDITION, WILL CONTINUE TO MONITOR
[2020-11-20 08:40] LABS: CALCIUM, SERUM 7.9 mg/dL (8.5-10.1)
[2020-11-20] MEDS: BUPROPION XL 150 MG TAB.ER.24 PO SCH (08:49)
[2020-11-20] MEDS: ENSURE ENLIVE 237 ML LIQUID (VANILLA) PO SCH ×2 (08:49→11:00)
[2020-11-20] MEDS: PANTOPRAZOLE 40 MG VIAL IV SCH (08:49)
[2020-11-20] MEDS: LOSARTAN POTASSIUM 25 MG TABLET PO SCH (08:49)
[2020-11-20 09:27] VITALS: BP 123/68
--- NOTE | 2020-11-20 13:36 | NUR ---
JET OPERATOR NOTE RECEIVED ORDER FOR DISCHARGE. PATIENT IS A/O X4. PATIENT BREATHING EVENLY AND NONLABORED ON ROOM AIR. NO SIGNS OF DISTRESS NOTED. PATIENT DOES NOT COMPLAIN OF ANY PAIN OR DISCOMFORT. DISCHARGE INSTRUCTIONS WERE GIVEN BOTH VERBALLY AND IN WRITTEN FORM. PATIENT VERBALIZES UNDERSTANDING. IV ACCESS WAS REMOVED CATHETER TIP INTACT AND PRESSURE DRESSING APPLIED. BELONGINGS ACCOUNTED FOR AND FORM SIGNED. PATIENT LEFT IN STABLE CONDITION WITH FAMILY
[2020-11-20] MEDS ORDERED: LEVO500T90 PO (15:59)
[2020-11-20] MEDS ORDERED: HYDR-3972 PO (15:59)
[2020-12-13] MEDS ORDERED: CYANOCOBALAMIN 1,000 MCG/ML VIAL IM SCH (09:00)
== END 2020-11-20 14:45 | disposition home health service (06) | DRG 371 ==
LOC: ER 16:23 → MED 21:50
PROVIDERS: ADMIT Registered Nurse; ATTEND Nurse Practitioner Acute Care
PROC: 05HC33Z Insertion of Infusion Device into Left Basilic Vein, Percutaneous Approach (ICD-10-PCS; principal; 2020-11-16)
PROC: 0W9F3ZZ Drainage of Abdominal Wall, Percutaneous Approach (ICD-10-PCS; 2020-11-19)
DX: K65.9 Peritonitis, unspecified (principal); K85.90 Acute pancreatitis without necrosis or infection, unspecified; K83.1 Obstruction of bile duct; J98.11 Atelectasis; J90 Pleural effusion, not elsewhere classified; K65.1 Peritoneal abscess; E83.42 Hypomagnesemia; E87.6 Hypokalemia; G89.29 Other chronic pain; K58.9 Irritable bowel syndrome, unspecified; Z90.49 Acquired absence of other specified parts of digestive tract; K57.30 Diverticulosis of large intestine without perforation or abscess without bleeding; Z20.822 Contact with and (suspected) exposure to COVID-19; Z90.710 Acquired absence of both cervix and uterus; Z79.899 Other long term (current) drug therapy; K76.0 Fatty (change of) liver, not elsewhere classified; I10 Essential (primary) hypertension; F32.9 Major depressive disorder, single episode, unspecified; I70.0 Atherosclerosis of aorta; E83.39 Other disorders of phosphorus metabolism; K29.80 Duodenitis without bleeding; D64.9 Anemia, unspecified; K83.9 Disease of biliary tract, unspecified; E66.9 Obesity, unspecified; K42.9 Umbilical hernia without obstruction or gangrene; E88.09 Other disorders of plasma-protein metabolism, not elsewhere classified; Z68.28 Body mass index [BMI] 28.0-28.9, adult
CPT/HCPCS: 36410; 36415; 71270-TC; 74178; 76856-TC; 76882; 78226; 80048-TC; 80053-TC; 80061-TC; 80076-TC; 80202-TC; 81001; 82105; 82247-TC; 82248-TC; 82378; 82728-TC; 82784; 83540-TC; 83690-TC; 83735-TC; 84100-TC; 84155; 84165; 84443-TC; 85025-TC; 85610-TC; 85730-TC; 86300; 86301; 86304; 86334; 87040-TC; 87081-TC; 87086-TC; 92521; 92526; 97112-TC; 97116-TC; 97530-TC; A9537; A9563; C9113; C9803; G0378; J2405; J2543; J2916; J3370; J3475; J3480; J3490; J7030; J7040; J7050; J7060; Q9963; Q9967; U0003

== ENCOUNTER 2022-03-16 06:52 | Day surgery (SDC) | payer MEDICARE, OTHER ==
[~2022-03-16] VITALS: Ht 154.9 cm; Wt 78.9 kg
[~2022-03-16 06:52] MED LIST: BUPR-54 PO; CYAN-6 IM; DICY20TA11 PO; ESOM40CA PO; FAMO-131 PO; HYDR-3972 PO; LEVO500T90 PO; LOSA25TA27 PO
[2022-03-16] MEDS ORDERED: NITROGLYCERIN 0.4 MG/TAB BOTTLE SL ONE (11:00)
[2022-03-16] MEDS: METOPROLOL TARTRATE INJ 5 MG/5 ML AMPUL IVP PRN ×6 (11:02→11:27)
[2022-03-16 11:27] VITALS: BP 121/53
[2022-03-16] MEDS ORDERED: METOPROLOL TARTRATE INJ 5 MG/5 ML AMPUL ONE ×3 (11:38→11:48)
[2022-03-16] MEDS ORDERED: NITROGLYCERIN 0.4 MG/TAB BOTTLE ONE (11:38)
[2022-03-16] MEDS ORDERED: IOHEXOL-350 100 ML VIAL IV ONE ×2 (11:38→13:22)
[2022-03-16] MEDS ORDERED: CT SWABBABLE VALVE TRANS SET 1 EA INFUS.SET MC ONE (11:39)
[2022-03-16] MEDS ORDERED: IV NS 0.9% 250 ML IV ONE (11:39)
== END 2022-03-16 12:00 | disposition short-term general hospital (02) ==
LOC: CT 06:52
PROVIDERS: ATTEND Internal Medicine
DX: I65.22 Occlusion and stenosis of left carotid artery (principal); I25.10 Atherosclerotic heart disease of native coronary artery without angina pectoris
CPT/HCPCS: 75574; J3490 ×3; J7050; Q9967 ×2

== ENCOUNTER 2022-12-03 01:57 | Inpatient (IN) | payer MEDICARE, OTHER ==
[~2022-12-03] VITALS: Ht 170.2 cm; Wt 74.8 kg
[2022-12-03] MEDS ORDERED: KETOROLAC TROMETHAMINE INJ 30 MG/ML VIAL IV ONE (02:30)
[2022-12-03] MEDS ORDERED: IV NS 0.9% 500 ML BAG IV ONE (02:30)
[2022-12-03] MEDS ORDERED: ONDANSETRON HCL/PF 4 MG/2 ML VIAL IVP ONE (02:30)
[2022-12-03] MEDS ORDERED: KETOROLAC TROMETHAMINE INJ 30 MG/ML VIAL ONE (02:54)
[2022-12-03] MEDS ORDERED: ONDANSETRON HCL/PF 4 MG/2 ML VIAL ONE (02:54)
[2022-12-03 03:05] LABS: BASOPHILS % (AUTO) 0.2 % (0.0-2.0); HEMATOCRIT 38 % (33-45); HEMOGLOBIN 12.6 g/dL (11.5-14.8); LYMPHOCYTES # (AUTO) 0.6 K/uL (0.8-4.8); LYMPHOCYTES % (AUTO) 4.1 % (20.0-44.0); MEAN CORPUSCULAR HEMOGLOBIN 30 PG (26.0-33.0); MEAN CORPUSCULAR HGB CONC 34 g/dl (31.0-36.0); MEAN CORPUSCULAR VOLUME 89 fL (82-100); MONOCYTES # (AUTO) 0.8 K/uL (0.1-1.30); MONOCYTES % (AUTO) 5.5 % (2.0-12.0); NEUTROPHILS # (AUTO) 12.6 K/uL (1.8-8.9); NEUTROPHILS % (AUTO) 90.2 % (43.0-81.0); PLATELET COUNT (AUTO) 152 K/uL (150-450); RED BLOOD CELL COUNT(AUTO) 4.21 MIL/uL (4.0-5.2); RED CELL DISTRIBUTION WIDTH 14.1 % (11.5-15.0)
[2022-12-03 03:15] LABS: INR 1.01 (0.91-1.10); PARTIAL THROMBOPLASTIN TIME 20.2 SEC (24.3-34.3); PROTHROMBIN TIME 10.6 SECS (9.2-11.1)
[2022-12-03 03:37] LABS: APPEARANCE,URINE CLEAR (CLEAR); BILIRUBIN,URINE 1+ (NEGATIVE); BLOOD, URINE 1+ Ery/uL (NEGATIVE); COLOR,URINE YELLOW (YELLOW); KETONES,URINE TRACE mg/dL (NEGATIVE); LEUKOCYTE ESTERASE ,URINE 2+ (NEGATIVE); NITRITE, URINE NEGATIVE (NEGATIVE); PROTEIN,URINE NEGATIVE (NEGATIVE); UGLUCOSE NEGATIVE (NEGATIVE)
[2022-12-03 03:47] LABS: ALANINE AMINOTRANSFERASE 305 U/L (12-78); ALBUMIN 3.1 g/dL (3.4-5.0); ALKALINE PHOSPHATASE 178 U/L (46-116); ASPARTATE AMINOTRANSFERASE 571 U/L (15-37); BILIRUBIN,DIRECT 1.5 mg/dL (0.0-0.2); BILIRUBIN,TOTAL 2.1 mg/dL (0.2-1.0); CALCIUM, SERUM 9.1 mg/dL (8.5-10.1); CARBON DIOXIDE 23 mmol/L (21-32); CHLORIDE 104 mmol/L (98-107); CREATININE 0.9 mg/dL (0.6-1.3); GLUCOSE 184 mg/dL (74-106); LIPASE 52 U/L (73-393); POTASSIUM 3.7 mmol/L (3.5-5.1); SODIUM SERUM 139 mmol/L (136-145); TOTAL PROTEIN, SERUM 7.2 g/dL (6.4-8.2); UREA NITROGEN, BLOOD 13 mg/dL (7-18)
[2022-12-03 03:50] LABS: ADD URINE CULTURE YES; BACTERIA,URINE 1+ /HPF (None Seen)
[2022-12-03] MEDS ORDERED: CEFTRIAXONE 1GM BAG (ER ONLY) 50 ML IV ONE (03:50)
[2022-12-03] MEDS ORDERED: CEFTRIAXONE 1GM BAG (ER ONLY) 1 GM/50 ML PIGGYBACK IV ONE (04:00)
[2022-12-03] MEDS ORDERED: TRAMADOL HCL 50 MG TABLET ONE (05:25)
[2022-12-03] MEDS ORDERED: TRAMADOL HCL 50 MG TABLET PO ONE (05:30)
[2022-12-03] MEDS ORDERED: METO25TA20 PO (10:34)
[2022-12-03] MEDS ORDERED: ASPI-1169 PO (10:45)
[2022-12-03] MEDS ORDERED: OMEP40CA21 PO (10:45)
[2022-12-03 13:15] VITALS: BP 123/73; TEMP 98.1; O2SAT 98
[2022-12-03] MEDS ORDERED: ONDANSETRON HCL/PF 4 MG/2 ML VIAL IV PRN (13:30)
[2022-12-03] MEDS: HYDROMORPHONE INJ 2 MG/ML DISP.SYRIN IV PRN ×2 (14:24→20:23)
[2022-12-03] MEDS ORDERED: ONDANSETRON HCL/PF 4 MG/2 ML VIAL IVP PRN (14:30)
[2022-12-03] MEDS ORDERED: MAGNESIUM HYDROXIDE 30 ML UDC PO PRN (14:30)
[2022-12-03] MEDS ORDERED: ZOLPIDEM TARTRATE 5 MG TABLET PO PRN (14:30)
[2022-12-03] MEDS ORDERED: MAG HYDROX/AL HYDROX/SIMETH 30 ML UDC PO PRN (14:30)
[2022-12-03] MEDS ORDERED: Z GUARD REMEDY 4 OZ OINT TP PRN (14:30)
[2022-12-03] MEDS: IV NS 0.9% 1,000 ML IV PRN (14:49)
[2022-12-03] MEDS ORDERED: ZOSYN IVPB 3.375 G in IV D5W 50ml IV SCH (15:00)
[2022-12-03 16:00] VITALS: BP 154/60; TEMP 102.6; O2SAT 91
[2022-12-03] MEDS: ACETAMINOPHEN 325 MG TABLET PO PRN (16:10)
[2022-12-03] MEDS: BLOOD SUGAR DIAGNOSTIC 1 EACH STRIP IN SCH ×2 (18:06→23:09)
[2022-12-03 20:00] VITALS: BP 101/47; TEMP 98.3; O2SAT 92
[2022-12-03] MEDS: PIPERACILLIN /TAZOBACTAM 3.375 G in IV D5W 100 ML IV SCH (20:29)
[2022-12-03 22:22] VITALS: BP 101/47; TEMP 98.3; O2SAT 92
[2022-12-04 04:00] VITALS: BP 95/59; TEMP 100.1; O2SAT 89
[2022-12-04] MEDS: PIPERACILLIN /TAZOBACTAM 3.375 G in IV D5W 100 ML IV SCH ×3 (04:25→19:56)
[2022-12-04 06:04] LABS: BASOPHILS % (AUTO) 0.1 % (0.0-2.0); HEMATOCRIT 34 % (33-45); HEMOGLOBIN 11.4 g/dL (11.5-14.8); LYMPHOCYTES # (AUTO) 0.8 K/uL (0.8-4.8); LYMPHOCYTES % (AUTO) 6.2 % (20.0-44.0); MEAN CORPUSCULAR HEMOGLOBIN 30 PG (26.0-33.0); MEAN CORPUSCULAR HGB CONC 33 g/dl (31.0-36.0); MEAN CORPUSCULAR VOLUME 90 fL (82-100); MONOCYTES # (AUTO) 0.8 K/uL (0.1-1.30); MONOCYTES % (AUTO) 6.1 % (2.0-12.0); NEUTROPHILS # (AUTO) 11.1 K/uL (1.8-8.9); NEUTROPHILS % (AUTO) 87.6 % (43.0-81.0); PLATELET COUNT (AUTO) 126 K/uL (150-450); RED CELL DISTRIBUTION WIDTH 14.1 % (11.5-15.0); WHITE BLOOD COUNT (AUTO) 12.7 K/uL (4.3-11.0)
[2022-12-04] MEDS: IV NS 0.9% 1,000 ML IV PRN ×2 (06:08→20:39)
[2022-12-04] MEDS: BLOOD SUGAR DIAGNOSTIC 1 EACH STRIP IN SCH ×4 (06:10→23:47)
[2022-12-04 06:24] LABS: BILIRUBIN,DIRECT 4.8 mg/dL (0.0-0.2); BILIRUBIN,TOTAL 5.6 mg/dL (0.2-1.0); CALCIUM, SERUM 8.7 mg/dL (8.5-10.1); CREATININE 1.1 mg/dL (0.6-1.3); MAGNESIUM 1.9 mg/dL (1.8-2.4); PHOSPHORUS 3.6 mg/dL (2.5-4.9); POTASSIUM 3.2 mmol/L (3.5-5.1); TOTAL PROTEIN, SERUM 6.4 g/dL (6.4-8.2)
[2022-12-04 06:41] LABS: ALBUMIN 2.5 g/dL (3.4-5.0)
[2022-12-04 08:00] VITALS: BP 141/82; TEMP 98; O2SAT 95
[2022-12-04 09:00] VITALS: BP 141/82
[2022-12-04] MEDS: HYDROMORPHONE INJ 2 MG/ML DISP.SYRIN IV PRN ×3 (09:13→19:18)
[2022-12-04] MEDS: POTASSIUM CL. PREMIX PERIPHER. 50 ML IV SCH ×4 (11:15→17:38)
[2022-12-04] MEDS: ACETAMINOPHEN 650 MG/SUPP.RECT RC PRN (14:38)
[2022-12-04 21:28] VITALS: BP 105/55; TEMP 98.7; O2SAT 93
[2022-12-05] MEDS: HYDROMORPHONE INJ 2 MG/ML DISP.SYRIN IV PRN ×4 (01:11→20:07)
[2022-12-05] MEDS: PIPERACILLIN /TAZOBACTAM 3.375 G in IV D5W 100 ML IV SCH ×3 (03:00→20:04)
[2022-12-05 05:58] LABS: BASOPHILS % (AUTO) 0.1 % (0.0-2.0); EOSINOPHILS # (AUTO) 0.6 K/uL (0.0-0.7); EOSINOPHILS % (AUTO) 4.9 % (0.0-6.0); HEMATOCRIT 33 % (33-45); HEMOGLOBIN 10.8 g/dL (11.5-14.8); LYMPHOCYTES # (AUTO) 0.7 K/uL (0.8-4.8); LYMPHOCYTES % (AUTO) 5.2 % (20.0-44.0); MEAN CORPUSCULAR HEMOGLOBIN 30 PG (26.0-33.0); MEAN CORPUSCULAR HGB CONC 33 g/dl (31.0-36.0); MEAN CORPUSCULAR VOLUME 92 fL (82-100); MONOCYTES # (AUTO) 0.8 K/uL (0.1-1.30); MONOCYTES % (AUTO) 6.2 % (2.0-12.0); NEUTROPHILS # (AUTO) 10.8 K/uL (1.8-8.9); NEUTROPHILS % (AUTO) 83.6 % (43.0-81.0); PLATELET COUNT (AUTO) 95 K/uL (150-450); RED BLOOD CELL COUNT(AUTO) 3.61 MIL/uL (4.0-5.2); RED CELL DISTRIBUTION WIDTH 14.8 % (11.5-15.0); WHITE BLOOD COUNT (AUTO) 12.9 K/uL (4.3-11.0)
[2022-12-05] MEDS: BLOOD SUGAR DIAGNOSTIC 1 EACH STRIP IN SCH ×3 (06:04→17:50)
[2022-12-05 06:27] LABS: ALBUMIN 2.1 g/dL (3.4-5.0); BILIRUBIN,TOTAL 5.9 mg/dL (0.2-1.0); CREATININE 0.8 mg/dL (0.6-1.3); MAGNESIUM 1.9 mg/dL (1.8-2.4); PHOSPHORUS 2.7 mg/dL (2.5-4.9); POTASSIUM 4.2 mmol/L (3.5-5.1); TOTAL PROTEIN, SERUM 6.2 g/dL (6.4-8.2)
[2022-12-05 06:49] LABS: CALCIUM, SERUM 8.6 mg/dL (8.5-10.1)
[2022-12-05 08:33] VITALS: BP 112/55; TEMP 97.7; O2SAT 95
[2022-12-05] MEDS: ACETAMINOPHEN 325 MG TABLET PO PRN (09:51)
[2022-12-05 16:00] VITALS: BP 141/79; TEMP 97.8; O2SAT 98
[2022-12-05 20:00] VITALS: BP 159/109; TEMP 98.2; O2SAT 97
[2022-12-05] MEDS ORDERED: METOPROLOL TARTRATE INJ 5 MG/5 ML AMPUL IVP ONE (21:30)
[2022-12-05] MEDS: IV NS 0.9% 1,000 ML IV PRN (23:59)
[2022-12-06] VITALS: BP 103/56; TEMP 99.3; O2SAT 93
[2022-12-06] MEDS: BLOOD SUGAR DIAGNOSTIC 1 EACH STRIP IN SCH ×4 (00:11→17:02)
[2022-12-06] MEDS: ACETAMINOPHEN 325 MG TABLET PO PRN ×2 (00:52→01:00)
[2022-12-06] MEDS: ACETAMINOPHEN 650 MG/SUPP.RECT RC PRN (01:02)
[2022-12-06 04:00] VITALS: BP_SYST 106; BP_SYST 113; BP_DIAS 56; BP_DIAS 81; TEMP 97.8; TEMP 98.6; O2SAT 100; O2SAT 94
[2022-12-06] MEDS: PIPERACILLIN /TAZOBACTAM 3.375 G in IV D5W 100 ML IV SCH (04:06)
[2022-12-06 05:59] LABS: BASOPHILS % (AUTO) 0.1 % (0.0-2.0); EOSINOPHILS # (AUTO) 0.1 K/uL (0.0-0.7); EOSINOPHILS % (AUTO) 0.9 % (0.0-6.0); HEMATOCRIT 33 % (33-45); HEMOGLOBIN 10.9 g/dL (11.5-14.8); LYMPHOCYTES # (AUTO) 0.7 K/uL (0.8-4.8); LYMPHOCYTES % (AUTO) 4.7 % (20.0-44.0); MEAN CORPUSCULAR HEMOGLOBIN 30 PG (26.0-33.0); MEAN CORPUSCULAR HGB CONC 33 g/dl (31.0-36.0); MEAN CORPUSCULAR VOLUME 89 fL (82-100); MONOCYTES # (AUTO) 0.9 K/uL (0.1-1.30); MONOCYTES % (AUTO) 5.6 % (2.0-12.0); NEUTROPHILS # (AUTO) 13.4 K/uL (1.8-8.9); NEUTROPHILS % (AUTO) 88.7 % (43.0-81.0); PLATELET COUNT (AUTO) 61 K/uL (150-450); RED BLOOD CELL COUNT(AUTO) 3.66 MIL/uL (4.0-5.2); RED CELL DISTRIBUTION WIDTH 14.5 % (11.5-15.0); WHITE BLOOD COUNT (AUTO) 15.2 K/uL (4.3-11.0)
[2022-12-06 06:36] LABS: ALBUMIN 1.9 g/dL (3.4-5.0); BILIRUBIN,TOTAL 6.7 mg/dL (0.2-1.0); CALCIUM, SERUM 9.2 mg/dL (8.5-10.1); CREATININE 0.8 mg/dL (0.6-1.3); MAGNESIUM 2.1 mg/dL (1.8-2.4); POTASSIUM 2.9 mmol/L (3.5-5.1); TOTAL PROTEIN, SERUM 5.9 g/dL (6.4-8.2)
[2022-12-06] MEDS: HYDROMORPHONE INJ 2 MG/ML DISP.SYRIN IV PRN (06:48)
[2022-12-06 07:00] VITALS: BP 125/58; TEMP 97.6; O2SAT 96
[2022-12-06] MEDS: POTASSIUM CL. PREMIX PERIPHER. 50 ML IV SCH ×6 (09:00→18:06)
[2022-12-06] MEDS ORDERED: IV LR 1000 ML 1,000 ML IV PRN (12:00)
[2022-12-06 12:54] LABS: ANISOCYTOSIS 1+; BASOPHILS % (MANUAL) 0 % (0.0-2.0); EOSINOPHILS % (MANUAL) 0 % (0-4); LYMPHOCYTES % (MANUAL) 6 % (16-48); MONOCYTES % (MANUAL) 5 % (0-11.0); NEUTROPHILS % (MANUAL) 89 (42-76); PLATELET ESTIMATE DECREASED
[2022-12-06] MEDS: MEROPENEM 1 G in IV NS 0.9% 100 ML IV SCH ×2 (13:29→21:17)
[2022-12-06 20:29] VITALS: BP 124/83; TEMP 97.5; O2SAT 95
[2022-12-07] MEDS: BLOOD SUGAR DIAGNOSTIC 1 EACH STRIP IN SCH ×5 (00:53→23:56)
[2022-12-07 01:10] VITALS: BP 136/81; TEMP 97; O2SAT 96
[2022-12-07] MEDS ORDERED: POTASSIUM CL. PREMIX PERIPHER. 50 ML ONE ×2 (02:52→04:29)
[2022-12-07] MEDS: POTASSIUM CL. PREMIX PERIPHER. 50 ML IV SCH ×2 (02:54→04:31)
[2022-12-07 04:12] VITALS: BP 136/81; TEMP 98; O2SAT 96
[2022-12-07] MEDS: MEROPENEM 1 G in IV NS 0.9% 100 ML IV SCH ×3 (05:11→21:16)
[2022-12-07 06:27] LABS: BASOPHILS % (AUTO) 0.4 % (0.0-2.0); EOSINOPHILS # (AUTO) 0.1 K/uL (0.0-0.7); EOSINOPHILS % (AUTO) 1.2 % (0.0-6.0); HEMATOCRIT 34 % (33-45); HEMOGLOBIN 11.5 g/dL (11.5-14.8); LYMPHOCYTES # (AUTO) 1.1 K/uL (0.8-4.8); LYMPHOCYTES % (AUTO) 10.6 % (20.0-44.0); MEAN CORPUSCULAR HEMOGLOBIN 30 PG (26.0-33.0); MEAN CORPUSCULAR HGB CONC 34 g/dl (31.0-36.0); MEAN CORPUSCULAR VOLUME 89 fL (82-100); MONOCYTES # (AUTO) 0.6 K/uL (0.1-1.30); MONOCYTES % (AUTO) 5.6 % (2.0-12.0); NEUTROPHILS # (AUTO) 8.6 K/uL (1.8-8.9); NEUTROPHILS % (AUTO) 82.2 % (43.0-81.0); PLATELET COUNT (AUTO) 77 K/uL (150-450); RED BLOOD CELL COUNT(AUTO) 3.85 MIL/uL (4.0-5.2); RED CELL DISTRIBUTION WIDTH 14.7 % (11.5-15.0); WHITE BLOOD COUNT (AUTO) 10.5 K/uL (4.3-11.0)
[2022-12-07 06:51] LABS: ALANINE AMINOTRANSFERASE 79 U/L (12-78); ALBUMIN 1.9 g/dL (3.4-5.0); ALKALINE PHOSPHATASE 165 U/L (46-116); ASPARTATE AMINOTRANSFERASE 67 U/L (15-37); BILIRUBIN,TOTAL 3.4 mg/dL (0.2-1.0); CALCIUM, SERUM 9.2 mg/dL (8.5-10.1); CARBON DIOXIDE 21 mmol/L (21-32); CHLORIDE 110 mmol/L (98-107); CREATININE 0.4 mg/dL (0.6-1.3); GLUCOSE 76 mg/dL (74-106); LIPASE 68 U/L (73-393); MAGNESIUM 2.1 mg/dL (1.8-2.4); SODIUM SERUM 143 mmol/L (136-145); TOTAL PROTEIN, SERUM 6.4 g/dL (6.4-8.2); UREA NITROGEN, BLOOD 23 mg/dL (7-18)
[2022-12-07 08:00] VITALS: BP 134/70; TEMP 98.5; O2SAT 97
[2022-12-07] MEDS ORDERED: IOHEXOL 100 ML IV ONE (11:26)
[2022-12-07] MEDS ORDERED: INDOMETHACIN 100 MG SUPP.RECT ONE (11:26)
[2022-12-07] MEDS ORDERED: FENTANYL PF 100MCG/2ML AMPUL ONE (11:53)
[2022-12-07 12:15] LABS: ANISOCYTOSIS 1+; BASOPHILS % (MANUAL) 0 % (0.0-2.0); EOSINOPHILS % (MANUAL) 2 % (0-4); LYMPHOCYTES % (MANUAL) 12 % (16-48); MONOCYTES % (MANUAL) 6 % (0-11.0); NEUTROPHILS % (MANUAL) 80 (42-76); PLATELET ESTIMATE DECREASED
[2022-12-07] MEDS: POTASSIUM PHOSPHATE MM 7.5 MMOL in IV NS 0.9% 100 ML IV SCH ×2 (14:10→16:48)
[2022-12-07] MEDS: HYDROMORPHONE INJ 2 MG/ML DISP.SYRIN IV PRN ×3 (14:35→23:50)
[2022-12-07 14:55] LABS: BASOPHILS % (AUTO) 0.2 % (0.0-2.0); EOSINOPHILS % (AUTO) 0.3 % (0.0-6.0); HEMATOCRIT 37 % (33-45); LYMPHOCYTES % (AUTO) 10.1 % (20.0-44.0); MEAN CORPUSCULAR HEMOGLOBIN 30 PG (26.0-33.0); MEAN CORPUSCULAR HGB CONC 33 g/dl (31.0-36.0); MEAN CORPUSCULAR VOLUME 90 fL (82-100); MONOCYTES # (AUTO) 0.4 K/uL (0.1-1.30); MONOCYTES % (AUTO) 3.8 % (2.0-12.0); NEUTROPHILS # (AUTO) 8.2 K/uL (1.8-8.9); NEUTROPHILS % (AUTO) 85.6 % (43.0-81.0); PLATELET COUNT (AUTO) 80 K/uL (150-450); RED BLOOD CELL COUNT(AUTO) 4.08 MIL/uL (4.0-5.2); RED CELL DISTRIBUTION WIDTH 15.1 % (11.5-15.0); WHITE BLOOD COUNT (AUTO) 9.6 K/uL (4.3-11.0)
[2022-12-07 16:00] VITALS: BP 140/80; TEMP 97.9; O2SAT 96
[2022-12-07 16:28] LABS: ANISOCYTOSIS 1+; BAND % (MANUAL) 4 % (0.0-5.0); EOSINOPHILS % (MANUAL) 1 % (0-4); LYMPHOCYTES % (MANUAL) 11 % (16-48); MONOCYTES % (MANUAL) 1 % (0-11.0); NEUTROPHILS % (MANUAL) 83 (42-76); PLATELET ESTIMATE DECREASED
[2022-12-07 20:00] VITALS: BP 139/76; TEMP 98; O2SAT 95
[2022-12-08 02:16] VITALS: BP 139/76; TEMP 98; O2SAT 95
[2022-12-08] MEDS: MEROPENEM 1 G in IV NS 0.9% 100 ML IV SCH ×2 (05:10→13:44)
[2022-12-08] MEDS: BLOOD SUGAR DIAGNOSTIC 1 EACH STRIP IN SCH ×2 (05:20→11:45)
[2022-12-08 06:07] LABS: ALANINE AMINOTRANSFERASE 61 U/L (12-78); ALBUMIN 1.9 g/dL (3.4-5.0); ALKALINE PHOSPHATASE 167 U/L (46-116); ASPARTATE AMINOTRANSFERASE 41 U/L (15-37); BILIRUBIN,DIRECT 1.2 mg/dL (0.0-0.2); BILIRUBIN,TOTAL 1.9 mg/dL (0.2-1.0); CALCIUM, SERUM 8.9 mg/dL (8.5-10.1); CARBON DIOXIDE 25 mmol/L (21-32); CHLORIDE 110 mmol/L (98-107); CREATININE 0.5 mg/dL (0.6-1.3); GLUCOSE 147 mg/dL (74-106); MAGNESIUM 2.1 mg/dL (1.8-2.4); PHOSPHORUS 2.1 mg/dL (2.5-4.9); POTASSIUM 4.2 mmol/L (3.5-5.1); SODIUM SERUM 141 mmol/L (136-145); TOTAL PROTEIN, SERUM 6.5 g/dL (6.4-8.2); UREA NITROGEN, BLOOD 25 mg/dL (7-18)
[2022-12-08 08:00] VITALS: BP 131/64; TEMP 98.4; O2SAT 98
[2022-12-08] MEDS ORDERED: K PHOS NEUTRAL 250 MG TABLET PO ONE (09:30)
[2022-12-08] MEDS: HYDROMORPHONE INJ 2 MG/ML DISP.SYRIN IV PRN (09:40)
[2022-12-08] MEDS ORDERED: LEVO500T90 PO (09:51)
== END 2022-12-08 15:30 | disposition home health service (06) | DRG 444 ==
LOC: ER 02:04 → MED 11:39 → TELE 12-05 21:23 → MED 12-07 10:48
PROVIDERS: ADMIT Internal Medicine; ATTEND Internal Medicine
PROC: 0FPB8DZ Removal of Intraluminal Device from Hepatobiliary Duct, Via Natural or Artificial Opening Endoscopic (ICD-10-PCS; principal; 2022-12-07)
PROC: 0F798DZ Dilation of Common Bile Duct with Intraluminal Device, Via Natural or Artificial Opening Endoscopic (ICD-10-PCS; 2022-12-07)
PROC: 0FC98ZZ Extirpation of Matter from Common Bile Duct, Via Natural or Artificial Opening Endoscopic (ICD-10-PCS; 2022-12-07)
PROC: BF10YZZ Fluoroscopy of Bile Ducts using Other Contrast (ICD-10-PCS; 2022-12-07)
DX: K80.51 Calculus of bile duct without cholangitis or cholecystitis with obstruction (principal); E43 Unspecified severe protein-calorie malnutrition; K21.9 Gastro-esophageal reflux disease without esophagitis; F32.9 Major depressive disorder, single episode, unspecified; I10 Essential (primary) hypertension; D69.6 Thrombocytopenia, unspecified; Z90.49 Acquired absence of other specified parts of digestive tract; Z88.5 Allergy status to narcotic agent; Z79.899 Other long term (current) drug therapy; R74.01 Elevation of levels of liver transaminase levels; E80.6 Other disorders of bilirubin metabolism; K83.8 Other specified diseases of biliary tract; E88.09 Other disorders of plasma-protein metabolism, not elsewhere classified; D72.829 Elevated white blood cell count, unspecified; K44.9 Diaphragmatic hernia without obstruction or gangrene; K57.30 Diverticulosis of large intestine without perforation or abscess without bleeding
CPT/HCPCS: 36415; 71045-TC; 74018; 74181-TC; 76705-TC; 80048-TC; 80053-TC; 80076-TC; 81001; 82962-TC; 83690-TC; 83735-TC; 84100-TC; 84484-TC; 85025-TC; 85730-TC; 87040-TC; 87086-TC; 97112-TC; 97116-TC; 97530-TC; A4223; C1726; C2625; G0378; J0330; J0696; J1170; J1885; J2185; J2405; J2543; J2704; J3010; J3480; J3490; J7030; J7040; J7060; J7120; Q9967